=== PATIENT | female | born 1980 | race Caucasian/White ===

== ENCOUNTER 2020-11-29 23:11 | Inpatient (IN) | payer OTHER, SELFPAY ==
[2020-11-29 23:11] VITALS: BP 102/77; PULSE 100; RESP 18; TEMP 36.7; O2SAT 97; BMI 23.1
--- NOTE | 2020-11-29 23:26 | ED.VIS.GI ---
HPI HPI - GI History of Present Illness Chief Complaint: Diarrhea Detail of Chief Complaint: Diarrhea that started 5 days ago Informant: patient and spouse/S.O. Diarrhea/Melena/Hematochezia GI Symptom: Positive for Diarrhea Narrative Narrative: Patient presents to the emergency department with complaint of diarrhea that started 5 days ago. Patient states that she had been on Augmentin for 7 days for a sinus infection when the diarrhea started. She complains of 10-12 episodes of watery stool per day. Patient discontinued the Augmentin when all of this started and she seemed to improve slightly until 2 days ago when the diarrhea became severe again. 2 evenings ago she took 1 Imodium which did seem to help for about 24hours but then the diarrhea came back today. She denies fevers or chills or sweats. Patient denies eating any undercooked or suspicious foods. She denies recent travel. She denies blood in her stool. No family history of Crohn's or ulcerative colitis. She describes intermittent severe abdominal cramping. Patient denies sick contacts. Prior similar symptoms: No PFSH PFSH Home Medications multivitamin [Multi-Daily] 1 tab PO DAILY 11/30/20 [History Last Taken Unknown] Allergy/AdvReac Type Severity Reaction Status Date / Time No Known Allergies Allergy Verified 11/29/20 23:13 Social History Smoking Status: Never smoker ROS [facility] ED Constitutional Constitutional ED: Reports systems reviewed and no addt'l complaints, except as documented; Denies body ache(s), change in weight or chills Eyes Eyes: Denies acute decrease in peripheral vision, change in vision, double vision or loss of vision ENT ENT ED: Reports none; Denies ear pain, lip swelling, loss taste/smell, neck pain, otalgia or sore throat Cardiovascular Cardiovascular: Reports none; Denies abdominal pain, chest pain with activity, leg edema, lightheadedness, palpitations, rapid heart rate or syncope Respiratory/Chest Respiratory/Chest: Reports none; Denies change in mental status, dry cough, dyspnea, hemoptysis, shortness of breath at rest or shortness of breath with exertion Gastrointestinal Gastrointestinal: Reports none, abdominal pain and diarrhea; Denies change in stool character, hematemesis, hematochezia, melena, rectal bleeding or vomiting Genitourinary Genitourinary ED: Reports none; Denies abdominal discomfort, anuria, dysuria, genital pain or polyuria Musculoskeletal Musculoskeletal: Reports none; Denies arthralgias, back pain, difficulty walking, extremity pain, muscle weakness or myalgias Integumentary Reports none; Denies abscess or rash Neurologic Neurologic: Reports none; Denies abnormal gait, confusion, focal weakness, frequent falls, headache(s), loss of vision, numbness, paresthesias, radicular pain, vertigo or weakness Psychiatric Psychiatric: Reports systems reviewed and no addt'l complaints, except as documented and none; Denies behavioral changes, confusion, difficulty concentrating, hallucinations, suicidal ideation, tactile hallucinations or visual hallucinations Endocrine Endocrinology: Denies none, cold intolerance, excessive sweating, fatigue or heat intolerance Hematologic/Lymphatic Hematologic/Lymphatic: Reports none; Denies anemia, easy bleeding or easy bruising Allergic/Immunologic Allergic/Immunologic ED: Denies as per HPI, none, lip swelling, mouth swelling, throat swelling, tongue swelling or hives EXAM Physical Exam Const Vital Signs: 11/29/20 23:11 11/30/20 02:15 11/30/20 03:08 Temperature 98.0 F 98.1 F Temperature Source Temporal Temporal Pulse Rate 100 94 88 Respiratory Rate 18 16 16 Blood Pressure 102/77 119/69 124/69 H Blood Pressure Mean 85 85 87 Pulse Ox 97 100 98 Oxygen Delivery Method Room Air Room Air Room Air Positive well nourished and well developed General Appearance ED: well developed and NAD HEENT Reports TM's clear and moist mucous membranes normocephalic and atraumatic; Negative for trauma or tenderness Tympanic Membrane ED: Yes TM's clear Eyes PERRL and EOMs intact bilaterally General Eye ED: Negative for pale conjunctiva or scleral icterus Neck no lymphadenopathy, supple and no JVD General: Negative for tenderness Chest Wall inspection of chest normal and palpation of chest normal Chest: Negative for tenderness Resp normal respiratory effort and clear to auscultation bilaterally Effort and Inspection: Negative for respiratory distress or pain with movement Auscultation: Negative for rhonchi, wheezes or diminished lung sounds Cardio regular rate, regular rhythm, S1 normal heart sound, S2 normal heart sound and no murmurs Peripheral Pulses: pulses 2+ throughout GI normal to inspection, nondistended, normoactive bowel sounds, soft to palpation, non-tender, non-distended and no masses Back/Spine no CVA tenderness and no thoracic nor lumbar tenderness Extremity normal to inspection General Extremety ED: Negative for edema General Extremity: Negative for edema Neuro oriented x3, CN's II-XII intact bilaterally, no sensory deficits noted and gait normal Sensorium / Orientation: awake, alert, oriented to person, oriented to place and oriented to time Motor Exam: strength 5/5 throughout and strength abnormal Psych mental status grossly normal Skin no rashes or lesions noted and no wounds MDM MDM MDM Narrative Medical decision making narrative: Patient noted to have C. difficile. She was given potassium chloride p.o. She received Bentyl IM and did feel improved. She continued complaint of nausea and was medicated with Zofran 4 mg IV. Patient received normal saline IV fluids. Patient started on vancomycin p.o. Lab Data Attestation: I reviewed the patient's lab results. Labs: Laboratory Results - last 24 hr 11/29/20 11/29/20 11/29/20 23:42 23:42 23:42 WBC 18.5 H RBC 4.80 Hgb 14.4 Hct 42.8 MCV 89.2 MCH 30.0 MCHC 33.6 RDW Std Deviation 39.3 RDW Coeff of Juan 12.0 Plt Count 319 MPV 8.9 Immature Gran % (Auto) 0.300 Neut % (Auto) 85.3 H Lymph % (Auto) 6.8 L Ogle % (Auto) 7.3 Eos % (Auto) 0.1 Baso % (Auto) 0.2 Absolute Neuts (auto) 15.8 H Absolute Lymphs (auto) 1.26 Nucleated RBC % 0 Sodium 137 Potassium 3.1 L Chloride 104 Carbon Dioxide 26.0 Anion Gap 7 BUN 6 L Creatinine 0.95 Estim Creat Clear Calc 67.30 Est GFR (MDRD) Af Amer 83 Est GFR (MDRD) Non-Af 69 BUN/Creatinine Ratio 6.3 L Glucose 117 H Lactic Acid 1.1 Calcium 8.5 Discharge Plan Triage Chief Complaint: Diarrhea ED Provider: Jonh Gonzalez Dx/Rx/DC Orders Clinical Impression: C. difficile colitis, Abdominal pain, Acute hypokalemia, Sepsis Prescriptions: No Action multivitamin [Multi-Daily] Tablet 1 tab PO DAILY RF: 0 Primary Care Provider: Carlos Mendiola Referrals: Carlos Mendiola MD [Primary Care Provider] - Disposition Disposition: Acute Care [facility]
[2020-11-29] MEDS: Dicyclomine 20 MG/2 ML Vial IM (23:34)
[2020-11-29] MEDS: 0.9% Normal Saline 1,000 ML 1000 ML IV (23:40)
[2020-11-29 23:49] LABS: Absolute Lymphocyte Count 1.26 X10^3/uL (0.83-4.51); Absolute Neutrophil Count 15.8 X10^3/uL (2.0-7.7); Basophil# 0.04 X10^3/uL; Basophil% 0.2 % (0-1); Eosinophil# 0.02 X10^3/uL; Eosinophils% 0.1 % (0-5); Hematocrit 42.8 % (37-47); Hemoglobin 14.4 g/dL (12.0-15.0); Lymphocyte # 1.26 X10^3/ul (0.83-4.51); Lymphocyte % 6.8 % (19-41); Mean Corp Hgb Conc 33.6 g/dL (32-36); Mean Corpuscular Volume 89.2 fL (81-99); Mean Platelet Vol. 8.9 fl (6.2-12.0); Monocyte# 1.36 X10^3/uL; Monocyte% 7.3 % (0-10); NRBC Flagged by Analyzer 0 % (0-5); Neutrophil # 15.79 X10^3/uL (2.7-7.7); Neutrophil % 85.3 % (47-70); Platelet Count 319 K/mm3 (150-450); RBC Distribution Width SD 39.3 fl (35.1-43.9); White Blood Count 18.5 K/mm3 (4.4-11.0)
[2020-11-30] VITALS (7 sets, daily range): BP systolic 108–124; BP diastolic 63–79; PULSE 78–97; RESP 16; TEMP 36.3–37.2; O2SAT 96–100; BMI 24.3
[2020-11-30 00:03] LABS: Anion Gap 7 (5-15); BUN 6 mg/dL (7-18); BUN/Creat Ratio 6.3 RATIO (10-20); Calcium,Total 8.5 mg/dL (8.5-10.1); Chloride 104 mmol/L (98-107); Creatinine, Serum 0.95 mg/dL (0.55-1.02); EST Glomerular Filtration Rate 69 mL/min (>60); Est Glom Filt Rate - Afr Amer 83 mL/min (>60); Glucose 117 mg/dL (74-106); Potassium 3.1 mmol/L (3.5-5.1); Sodium Level 137 mmol/L (136-145)
[2020-11-30 00:12] LABS: Lactic Acid 1.1 mmol/L (0.4-1.9)
[2020-11-30] MEDS: Ondansetron 4 MG/2 ML Vial IV ×3 (02:08→18:10)
--- NOTE | 2020-11-30 02:27 | ED.RN ---
pt c/o nausea and abdominal cramping, pt will try to eat saltines then take the potassium as ordered.
[2020-11-30] MEDS: Potassium Chloride Oral Tablet 20 MEQ 40 MEQ PO (02:46)
[2020-11-30] MEDS: Vancomycin 125 MG/5 ML Susp PO.SYRINGE PO ×5 (02:52→23:56)
--- NOTE | 2020-11-30 03:24 | HP.PCM.HOS_ITS ---
[facility] - General General Date of Admission: 11/30/20 Date of Service: 11/30/20 Chief Complaint: Diarrhea HPI Narrative KEE ELIZABETH, is a 39 F with a significant history of recurrent sinusitis who presented to the emergency department with multiple episodes of loose stools that started about 5 days prior to presentation. Associated with her symptoms is nausea and vomiting. She can only tolerate toast. She reports low-grade fever of between 99-100 Fahrenheit. Further he reports anorexia. He reported that because of sinusitis she was put on a 10-day course of Augmentin. She stopped taking the antibiotics on the seventh day. She began taking Imodium because of her loose stools. Upon calling her PCP she was advised to stop taking Imodium as it may be C. difficile. [facility] Medical History (Updated 11/30/20 @ 03:[address] Darren Fuentes MD) Sinusitis Home Medications multivitamin [Multi-Daily] 1 tab PO DAILY 11/30/20 [History Last Taken Unknown] Allergy/AdvReac Type Severity Reaction Status Date / Time No Known Allergies Allergy Verified 11/29/20 23:13 Family History (Updated 11/30/20 @ 03:[address] Darren Fuentes MD) Other Cancer Colon cancer Hypertension Surgical History (Updated 11/30/20 @ 03:[address] Darren Fuentes MD) [place] teeth extracted Social History Smoking Status: Never smoker ROS ROS Narrative Constitutional: Reports fever and anorexia. Denies chills Eyes: Denies blurry vision, change in eye color, change in vision, discharge from eye(s), double vision, erythema, eye pain, loss of vision or other HEENT: Denies abnormal hearing, dysphagia, ear pain, epistaxis, headache(s), or other Cardiovascular: Denies chest pain. Denies dyspnea on exertion, orthopnea and paroxysmal nocturnal dyspnea Respiratory/Chest: Denies cough, excessive phlegm production, shortness of breath with exertion and wheezing Gastrointestinal: Reports abdominal cramps; diarrhea nausea; dry heaving and vomiting. Genitourinary: Denies burning urination, difficulty urinating, dysuria, hematuria, nocturia, urinary frequency, urinary hesitancy, urinary incontinence, urinary urgency or other Musculoskeletal: Denies arthralgias, back pain, joint pain, joint stiffness, joint swelling, myalgias, neck pain or other Neurologic: Denies abnormal gait, abnormal speech, confusion, disequilibrium, dizziness, focal weakness, headache(s), numbness, paresthesias, seizure-like activity, seizures, syncope, tingling, tremor(s) or other Psychiatric: Denies anxiety, depression, homicidal ideation, suicidal ideation or other Endocrinology: Denies change in body appearance, cold intolerance, excessive sweating, heat intolerance, polydipsia, polyuria or other Hematologic/Lymphatic: Denies anemia, easy bleeding, easy bruising, lymphadenopathy or other Integumentary: Denies ulcer on buttocks. Allergic/Immunologic: Denies hives, eczema, asthma or other Vital Signs Vital Signs Vital Signs: 11/29/20 23:11 11/30/20 02:15 11/30/20 03:08 Temperature 98.0 F 98.1 F Temperature Source Temporal Temporal Pulse Rate 100 94 88 Respiratory Rate 18 16 16 Blood Pressure 102/77 119/69 124/69 H Blood Pressure Mean 85 85 87 Pulse Ox 97 100 98 Oxygen Delivery Method Room Air Room Air Room Air Weight Weight: 61.235 kg Body Mass Index (BMI) 23.1 Physical Exam Narrative Physical exam: General: Well-nourished, well-developed, no acute distress Head: Normocephalic, atraumatic, no tenderness Eyes: PERRLA, EOMI ENT, no trauma, moist mucous membranes, no rhinorrhea Neck: Nontender, full range of motion, no spinal tenderness, deformities, step- off CVS: Regular rate and rhythm Respiratory no acute distress, clear to auscultation bilaterally, chest wall nontender, no wheezing Abdomen: Soft, nontender, nondistended, normal bowel sounds, no masses : Deferred Back: Nontender, no CVA tenderness, no midline spinal tenderness, deformities, step-offs Extremities: Nontender full range of motion, no trauma Skin: Normal color, no trauma, abrasions Neuro: Alert, oriented, cranial nerves II through XII grossly intact. Psychiatry: Normal mood. Normal affect. Not depressed. Not anxious. Results Lab / Micro Data Result Diagrams: 11/29/20 23:42 11/29/20 23:42 Labs: Laboratory Results - last 24 hr 11/29/20 23:42: WBC 18.5 H, RBC 4.80, Hgb 14.4, Hct 42.8, MCV 89.2, MCH 30.0, MCHC 33.6, RDW Std Deviation 39.3, RDW Coeff of Juan 12.0, Plt Count 319, MPV 8.9, Immature Gran % (Auto) 0.300, Neut % (Auto) 85.3 H, Lymph % (Auto) 6.8 L, Gray % (Auto) 7.3, Eos % (Auto) 0.1, Baso % (Auto) 0.2, Absolute Neuts (auto) 15.8 H, Absolute Lymphs (auto) 1.26, Nucleated RBC % 0 11/29/20 23:42: Lactic Acid 1.1 11/29/20 23:42: Sodium 137, Potassium 3.1 L, Chloride 104, Carbon Dioxide 26.0, Anion Gap 7, BUN 6 L, Creatinine 0.95, Estim Creat Clear Calc 67.30, Est GFR (MDRD) Af Amer 83, Est GFR (MDRD) Non-Af 69, BUN/Creatinine Ratio 6.3 L, Glucose 117 H, Calcium 8.5 Micro: Microbiology 11/30/20 00:00 Stool Enteric Bacteriology - Final 11/30/20 00:00 Stool C. difficile GDH Antigen & Toxins - Final Toxigenic C. difficile 11/30/20 00:00 Stool C. difficile DNA Amplification - Final Assessment & Plan Assessment/Plan (1) Sepsis: QUALIFIERS: Sepsis acute organ dysfunction status: without acute organ dysfunction Sepsis type: sepsis due to unspecified organism Qualified Code(s): A41.9 - Sepsis, unspecified organism (2) C. difficile colitis: (3) Acute hypokalemia: PLAN: Sepsis secondary to C. difficile colitis Patient meets SIRS criteria with heart rate of more than 90; and white count of 18.5 and with neutrophilic predominance. Review of microbiology showed toxigenic positive C. difficile Received vancomycin p.o. at the emergency department and continued. Supportive treatment with Metamucil; and normal saline with potassium infusion. Patient reported that she can tolerate toast. Regular diet ordered. Received a Bentyl IM at the bigger department with good response. Bentyl IM ordered. Antiemetics with Zofran IV ordered. Trend CBC and BMP. Acute hypokalemia Patient potassium of 3.1 likely secondary to vomiting and diarrhea. Received 40 mEq potassium. Emergency department. Placed on normal saline with 40 mEq of potassium at 100 mL/h. Check magnesium. DVT prophylaxis: Low risk Encourage to ambulate. Charges/Coding Visit Charges Inpatient E&M: 61723 Init Hosp L3
[2020-11-30 04:30] LABS: Magnesium 1.9 mg/dL (1.6-2.6)
[2020-11-30] MEDS: Potassium Chloride 40 MEQ in 0.9% Normal Saline 1,000 ML 100 MEQ IV ×3 (04:54→23:58)
[2020-11-30] MEDS: 0.9% Saline Lock 10 ML Syringe IV ×5 (04:54→21:14)
[2020-11-30] MEDS: Dicyclomine 20 MG/2 ML Vial IM (05:10)
[2020-11-30 05:41] LABS: Absolute Lymphocyte Count 1.37 X10^3/uL (0.83-4.51); Absolute Neutrophil Count 14.3 X10^3/uL (2.0-7.7); Basophil# 0.03 X10^3/uL; Basophil% 0.2 % (0-1); Eosinophil# 0.01 X10^3/uL; Eosinophils% 0.1 % (0-5); Hematocrit 42.6 % (37-47); Hemoglobin 14.2 g/dL (12.0-15.0); Lymphocyte # 1.37 X10^3/ul (0.83-4.51); Mean Corp Hgb Conc 33.3 g/dL (32-36); Mean Corpuscular Hgb 29.8 pg (27.0-32.0); Mean Corpuscular Volume 89.3 fL (81-99); Monocyte# 1.35 X10^3/uL; Monocyte% 7.9 % (0-10); NRBC Flagged by Analyzer 0 % (0-5); Neutrophil # 14.26 X10^3/uL (2.7-7.7); Neutrophil % 83.3 % (47-70); Platelet Count 297 K/mm3 (150-450); RBC Distribution Width CV 12.1 % (11.6-14.6); RBC Distribution Width SD 39.6 fl (35.1-43.9); Red Blood Count 4.77 M/mm3 (4.2-5.4); White Blood Count 17.1 K/mm3 (4.4-11.0)
[2020-11-30 06:00] LABS: Anion Gap 6 (5-15); BUN 5 mg/dL (7-18); BUN/Creat Ratio 6.1 RATIO (10-20); Calcium,Total 8.1 mg/dL (8.5-10.1); Chloride 107 mmol/L (98-107); Creatinine, Serum 0.82 mg/dL (0.55-1.02); EST Glomerular Filtration Rate 81 mL/min (>60); Est Glom Filt Rate - Afr Amer 98 mL/min (>60); Estimated Creatinine Clearance 77.96 ml/min; Glucose 117 mg/dL (74-106); Potassium 3.5 mmol/L (3.5-5.1); Sodium Level 139 mmol/L (136-145)
--- NOTE | 2020-11-30 06:16 | NURSING ---
Patient refusing 0600 Metamucil at this time because she is nauseous and cannot stomach an entire glass of water. This RN left it hanging out for now in case she feels like she can drink it in a full glass of water soon.
--- NOTE | 2020-11-30 11:05 | CASEMGMT ---
ANDREZ SANTILLAN Assessment: Face to Face with pt for initial transition planning/care coordination assessment. RN CM introduced self and role at [facility], pt voices understanding and consents to assessment. Pt is A/O x4 and answers all questions appropriately at this time. Pt sitting up in bed in no distress. Care providers, pharmacy, and demographics verified/updated. Admitting Dx: sepsis secondary to Cdiff PCP:Maury Specialists: dennys Niño; [facility] for TRANSPORT ASSISTANT Preferred Pharmacy: [facility] Insurance: Commercial- [employer] insurance Prescription Benefit: Pt states she receives a discount card for rx. LW/HPOA: Pt states she does have LW/DPOA and thinks her is her DPOA. She is aware that it is not on file at [facility] and she may bring in to scan into chart. LNOK: Javier Sykes, Living Arrangements: Pt lives with her and 3 children in a two story house with 2 steps to enter without a rail. Pt reports being I in ADL's and denies concerns at home. Transportation: Pt drives self and denies concerns with transportation. DME/HHC/SNF: Pt denies having DME, previous HHC or SNF stay. Pt states no concerns with going home at time of dc. Pt states no further concerns/needs. CM to follow. Advised pt to ask CM if any further question/concerns/needs arise, voices understanding. Pt Goal: Home Plan: Home with family support.
[2020-11-30] MEDS: Dicyclomine 10 MG Capsule 20 MG PO ×3 (13:19→23:55)
--- NOTE | 2020-11-30 20:21 | PCM.HOSP.N ---
Hospitalist Note Patient was seen and examined briefly today, I talked with her and her , she is still having loose stools today. Patient is able to take in liquids and is on IV fluids however. I will reassess the patient tomorrow for possible discharge if she has less frequent bowel movements.
[2020-12-01 02:14] VITALS: BP 109/66; PULSE 67; RESP 16; TEMP 36.6; O2SAT 98
[2020-12-01] MEDS: Dicyclomine 10 MG Capsule 20 MG PO (05:46)
[2020-12-01] MEDS: Vancomycin 125 MG/5 ML Susp PO.SYRINGE PO (05:46)
[2020-12-01 07:09] VITALS: O2SAT 95
[2020-12-01 09:02] VITALS: BP 110/72; PULSE 74; RESP 18; TEMP 36.7; O2SAT 99
--- NOTE | 2020-12-01 12:45 | PCM.DC ---
Discharge Instructions Diet Discharge Diet: No restrictions Activity Discharge Activity: Return to Normal Activity Weight Bearing Status: Full weight bearing Follow Up Care Test Results: Test results from this visit will be discussed in further detail at your follow-up appointment, if applicable. Discharge Plan Admission Admit Date/Time: 11/30/20 03:18 Primary Reason for Your Visit: c.diff infection Attending Provider: Yannick Galeana Primary Care Provider: Carlos Mendiola Discharge Orders/Prescriptions Prescriptions: New Firvanq 25 mg/mL Recon Soln 125 mg PO Q6 Qty: 34 RF: 0 No Action multivitamin [Multi-Daily] Tablet 1 tab PO DAILY RF: 0 Referrals / Follow Up: Carlos Mendiola MD [Primary Care Provider] - Within 2 Weeks Disposition Disposition (needs filled in before D/C Order can be placed): Home, Self Care
[2020-12-01 14:00] VITALS: BP 116/80; PULSE 81; RESP 16; TEMP 37; O2SAT 97
--- NOTE | 2020-12-04 09:45 | PCM.DC.SUM ---
Providers Date of Admission: 11/30/20 Date of Discharge: 12/01/20 Primary Care Physician: Dr. Carlos Mendiola MD Reason For Visit: SEPSIS SECONDARY TO CDIFF Diagnosis Discharge Diagnosis (1) Sepsis: Status: Acute Code(s): A41.9 - Sepsis, unspecified organism Qualifiers: Sepsis type: sepsis due to unspecified organism Sepsis acute organ dysfunction status: without acute organ dysfunction Qualified Code(s): A41.9 - Sepsis, unspecified organism (2) C. difficile colitis: Status: Acute Code(s): A04.72 - Enterocolitis due to Clostridium difficile, not specified as recurrent (3) Acute hypokalemia: Status: Acute Code(s): E87.6 - Hypokalemia Plan: 1. Sepsis secondary to C. difficile colitis #2 C. difficile colitis #3 acute hypokalemia secondary to C. difficile colitis Medications at Discharge Home Medications multivitamin [Multi-Daily] 1 tab PO DAILY 11/30/20 vancomycin [Firvanq] 125 mg PO Q6 #34 cap 12/01/20 Hospital Course Operations None Procedures None Summary of Care Provided Minutes Spent on Discharge: 31 Hospital Course: This 40-year-old white female was seen in the emergency room at [facility] with a chief complaint of abdominal cramping and diarrhea, she had recently been placed on antibiotics for a sinus infection. Work-up in the emergency room showed an elevated white blood cell count and low potassium. Stool was positive for C. difficile toxin, patient was admitted to [place] [id number] for sepsis secondary to C. difficile colitis, she was given potassium supplementation, IV fluids, and oral vancomycin. Patient's symptoms improved during her hospitalization. On 12/01/2020, patient was seen and examined: On examination she appeared in good health and spirits, she does not appear to be in any distress. Vital signs as documented. Skin warm and dry and without overt rashes. Neck without JVD, thyroid appears normal, trachea is midline, neck is supple. Lungs clear, normal air movement was noted. Heart exam notable for regular rhythm, normal sounds and absence of murmurs, rubs or gallops. Abdomen unremarkable and without evidence of organomegaly, masses, or abdominal aortic enlargement, bowel sounds are present in all 4 quadrants, no abdominal tenderness was noted. Extremities nonedematous, no cyanosis was noted, no clubbing was noted. Neuro: Cranial nerves II through XII are grossly intact, no focal motor deficits were noted, sensation to light touch and pinprick is intact, motor exam 5/5 throughout. Psych: Patient is alert and oriented x3, she does not appear anxious or depressed, she does not appear agitated. On 12/01/2020, patient was discharged home in stable condition. Weight / BMI Weight Weight: 64.4 kg Body Mass Index (BMI) 24.3 ABG / Lab / Microbiology Data Result Diagrams: 11/30/20 05:30 11/30/20 05:30 Microbiology: Microbiology 11/30/20 03:20 Blood Culture (Wb) - Anticubital Right Blood Culture - Preliminary No growth in 48 hours. 11/30/20 03:20 Blood Culture (Wb) - Anticubital Left Blood Culture - Preliminary No growth in 48 hours. 11/30/20 02:02 Stool Ova and Parasites - Final 11/30/20 00:00 Stool Enteric Bacteriology - Final 11/30/20 00:00 Stool C. difficile GDH Antigen & Toxins - Final Toxigenic C. difficile 11/30/20 00:00 Stool C. difficile DNA Amplification - Final D/C Instructions Discharge Diet: No restrictions Weight Bearing Status: Full weight bearing Meaningful Use Info Meaningful Use Diagnoses (Choose all that apply): None applicable Discharge Plan Admission Admit Date/Time: 11/30/20 03:18 Primary Reason for Your Visit: c.diff infection Attending Provider: Yannick Galeana Primary Care Provider: Carlos Mendiola Discharge Orders/Prescriptions Prescriptions: New Firvanq 25 mg/mL Recon Soln 125 mg PO Q6 Qty: 34 RF: 0 No Action multivitamin [Multi-Daily] Tablet 1 tab PO DAILY RF: 0 Referrals / Follow Up: Carlos Mendiola MD [Primary Care Provider] - Within 2 Weeks Disposition Disposition (needs filled in before D/C Order can be placed): Home, Self Care Charges/Coding Visit Charges Inpatient E&M: 41066 Disch Hosp
== END 2020-12-01 14:02 | disposition home or self-care (01) | DRG 872 ==
LOC: ED 11-30 03:17 → MS3 11-30 04:06
PROVIDERS: Admitting Provider Hospitalist; Emergency Provider Emergency Medicine; PCP Family Medicine; Visit Provider Internal Medicine
DX: A41.4 Sepsis due to anaerobes (principal); A04.72 Enterocolitis due to Clostridium difficile, not specified as recurrent; E87.6 Hypokalemia
CPT/HCPCS: 36415; 80048; 83605; 83735; 85025; 87040; 87177; 87209; 87493; 87506; 97802; 99285; J7030; A4216; J2405

== ENCOUNTER → 2022-05-11 | Outpatient (CLI) | payer OTHER, SELFPAY ==
[2022-05-11 10:36] LABS: Anion Gap 3 (5-15); BUN 12 mg/dL (7-18); BUN/Creat Ratio 14.7 RATIO (10-20); Calcium,Total 8.7 mg/dL (8.5-10.1); Chloride 107 mmol/L (98-107); Cholesterol 152 mg/dL (200); Creatinine, Serum 0.82 mg/dL (0.55-1.02); EST Glomerular Filtration Rate 81 mL/min (>60); Est Glom Filt Rate - Afr Amer 98 mL/min (>60); Glucose 92 mg/dL (74-106); High Density Lipoprotein 77 mg/dL; Potassium 3.9 mmol/L (3.5-5.1); Sodium Level 140 mmol/L (136-145); Thyroid Stim Hormone (TSH) 1.03 uIU/mL (0.358-3.74); Triglycerides 51 mg/dL; Very Low Density Lipoprotein 10 mg/dL (5-40)
== END | disposition home or self-care (01) ==
LOC: MFPLAB 08:49
PROVIDERS: PCP Family Medicine; Visit Provider Family Medicine
DX: Z13.1 Encounter for screening for diabetes mellitus (principal); Z13.220 Encounter for screening for lipoid disorders; Z13.29 Encounter for screening for other suspected endocrine disorder
CPT/HCPCS: 36415; 80048; 80061; 84443

== ENCOUNTER → 2022-05-26 | Outpatient (CLI) | payer OTHER, SELFPAY ==
--- NOTE | 2022-05-26 10:44 | BI_ITS ---
MAMMOGRAPHY - BILATERAL SCREENING REASON FOR EXAM: Female, 41 years old. Routine annual screening examination. PERTINENT HISTORY: Non-contributory. History of prior right breast biopsies. TECHNIQUE: Digital bilateral breast alisha (3D mammographic acquisition) in the CC and MLO projections. 2-D mediolateral oblique (MLO) and craniocaudad (CC) views of both breasts were obtained. CAD: Full Field Digital Mammography with Computer Added Detection was performed. COMPARISON: Comparison is made with prior outside examination dated 01/06/2020. FINDINGS: Breast Composition: The breasts are extremely dense, which lowers the sensitivity of mammography. There are no dominant masses or suspicious calcifications. A tissue clip marker is seen in the superior slightly lateral aspect of the right breast. No other significant abnormalities are identified. There has been no significant change since the prior study. BI/SCRN MAMM (CAD)W/ALISHA BILAT IMPRESSION: Stable bilateral screening mammogram. Yearly follow-up mammogram recommended. (A) ASSESSMENT CATEGORY: BIRADS Category 2: Benign. A letter regarding these results will be sent to the patient by the facility within 30 days. Approximately 10% of breast cancers are not detected by mammography. A normal mammogram should not delay biopsy of a clinically suspicious abnormality. [id number] Electronically Signed: Jared Mann MD at 13:32 EST ,
== END | disposition home or self-care (01) ==
LOC: OPBI 10:41
PROVIDERS: PCP Family Medicine; Visit Provider Family Medicine
DX: Z12.31 Encounter for screening mammogram for malignant neoplasm of breast (principal)
CPT/HCPCS: 77063; 77067

== ENCOUNTER → 2022-06-16 | Outpatient (CLI) | payer OTHER, SELFPAY ==
--- NOTE | 2022-06-16 11:50 | US_ITS ---
STUDY: ULTRASOUND BREAST - RIGHT REASON FOR EXAM: Female, 41 years old. Right axillary lump. TECHNIQUE: Axial and longitudinal images of the RIGHT breast were performed with a high resolution ultrasound transducer. # OF IMAGES: 41 COMPARISON: Comparison is made with prior mammogram dated 05/26/2022. FINDINGS: RIGHT Breast: The right axillary region was examined with ultrasound. There is evidence of accessory breast tissue. No solid or cystic mass lesion is seen. US/Breast Limited Unilateral IMPRESSION: No sonographic abnormality is seen. ASSESSMENT CATEGORY: BIRADS Category 2: Benign. A letter regarding these results will be sent to the patient by the facility within 30 days. Electronically Signed: Jared Mann MD at 12:31 EST ,
== END | disposition home or self-care (01) ==
PROVIDERS: PCP Family Medicine; Visit Provider Family Medicine
DX: R22.31 Localized swelling, mass and lump, right upper limb (principal)
CPT/HCPCS: 76642

== ENCOUNTER → 2023-06-16 | Outpatient (CLI) | payer OTHER, SELFPAY ==
--- NOTE | 2023-06-16 08:56 | BI_ITS ---
MAMMOGRAPHY - BILATERAL SCREENING REASON FOR EXAM: Female, 42 years old. Routine annual screening examination. PERTINENT HISTORY: Non-contributory. Prior right breast biopsy. TECHNIQUE: Digital bilateral breast alisha (3D mammographic acquisition) in the CC and MLO projections. 2-D mediolateral oblique (MLO) and craniocaudad (CC) views of both breasts were obtained. CAD: Full Field Digital Mammography with Computer Added Detection was performed. COMPARISON: Comparison is made with prior study dated May 26, 2022. FINDINGS: Breast Composition: The breasts are extremely dense, which lowers the sensitivity of mammography. There are no dominant masses or suspicious calcifications. A tissue clip marker is seen in the superior slightly lateral aspect of the right breast. No other significant abnormalities are identified. There has been no significant change since the prior study. BI/SCRN MAMM (CAD)W/ALISHA BILAT IMPRESSION: Stable bilateral screening mammogram. Yearly follow-up mammogram recommended. (A) ASSESSMENT CATEGORY: BIRADS Category 2: Benign. A letter regarding these results will be sent to the patient by the facility within 30 days. Approximately 10% of breast cancers are not detected by mammography. A normal mammogram should not delay biopsy of a clinically suspicious abnormality. [id number] Electronically Signed: Jared Mann MD at 9:27 EST ,
--- OUTSIDE RECORDS SUMMARY | 2023-06-16 08:59 | XMS RPT_ITS | CCD ---
Author Name Unknown Address [address] [place] [id number] Organization [facility] Results Test Name Value Interpretation Reference Range Facil ity Progress note 02-24-2021 Note Date & Type Note Facility 02-24-2021 Note HNO ID: [id number] Author: Danielle Benton Service: ? Author Type: Animal Damage Control Agent Type: Progress Notes Filed: 02/24/2021 3:26 PM Note Text: Radiology Service Progress Note PATIENT NAME: Arabella Sykes DATE OF SERVICE: February 24, 2021 TIME: 3:26 PM PATIENT IDENTITY VERIFICATION COMPLETED USING TWO (2) IDENTIFIERS: Name and Date of confirmed by patient verbally. FALL SCREENING: Has the patient had 2 falls in the last year or 1 fall with injury or currently using an Ambulatory Assistive Device (Walker, Cane, Wheelchair, Crutches, etc.)? No PATIENT GENDER DATA: Female. status: : No status: NO. PATIENT RELEVANT IMPLANT DATA REVIEWED: Not Applicable RADIOLOGY DEPARTMENT: Mammography PERIPHERAL IV DATA: Not applicable SIGNED BY: Danielle Benton February 24, 2021 3:26 PM [facility] Summary Purpose Family History No Family History Records FoundNo Family History Records FoundNo Family History Records Found Advance Directives No Advanced Directives Records FoundNo Advanced Directives Records FoundNo Advanced Directives Records Found Additional Source Comments INFORMATION SOURCE (unrecogn ized section and content) DATE CREATED AUTHOR AUTHOR'S ORGANIZ ATION 06/03/2020 [facility] [employer] DATE CREATED AUTHOR AUTHOR'S ORGANIZ ATION 06/14/2021 [facility] FOR RECORDS PERTAINING TO PATIENTS WHO ARE OR HAVE BEEN ENROLLED IN A CHEMICAL DEPENDENCY/SUBSTANCEABUSE PROGRAM, SOME INFORMATION MAY BE OMITTED. This clinical summary was aggregated from multiple sources. Caution should be exercised in using it in the provision of clinical care. This summary normalizes information from multiple sources, and as a consequence, information in this document may materially change the coding, format and clinical context of patient data. In addition, data may be omitted in some cases. CLINICAL DECISIONS SHOULD BE BASED ON THE PRIMARY CLINICAL RECORDS. [facility] [employer] [facility]. provides no warranty or guarantee of the accuracy or completeness of information in this document.
== END | disposition home or self-care (01) ==
PROVIDERS: PCP Family Medicine; Referring Provider Family Medicine; Visit Provider Family Medicine
DX: Z12.31 Encounter for screening mammogram for malignant neoplasm of breast (principal)
CPT/HCPCS: 77063; 77067

== ENCOUNTER → 2024-06-25 | Outpatient (CLI) | payer OTHER, SELFPAY ==
--- NOTE | 2024-06-25 13:03 | RAD_ITS ---
PROCEDURE: LEFT SHOULDER MIN 2 VIEWS REASON FOR EXAM: Pain. TECHNIQUE: Four views of the left shoulder are obtained. COMPARISON: None. FINDINGS: No acute fracture or dislocation is present. No osseous erosive changes or periosteal reaction is present. Glenohumeral joint and acromioclavicular joint are intact. There is a tiny punctate ossific density measuring 2 mm superior to the glenoid process. Visualized soft tissues are unremarkable. RAD/Shoulder min 2 Views IMPRESSION: 1. No acute osseous abnormality. 2. Tiny punctate ossific density measuring 2 mm superior to the glenoid process which may relate to a loose body. Reading Location: [facility]
== END | disposition home or self-care (01) ==
LOC: MTRAD 13:02
PROVIDERS: PCP Family Medicine; Referring Provider Family Medicine; Visit Provider Family Medicine
DX: M75.52 Bursitis of left shoulder (principal)
CPT/HCPCS: 73030

== ENCOUNTER 2024-06-28 11:57 | Outpatient (RCR) | payer OTHER, SELFPAY ==
--- NOTE | 2024-06-28 13:03 | HP.PTEVAL_ITS ---
Patient's Visit Information Visit Information Visit Information: KEE ELIZABETH is a 43 year old F referred to Physical Therapy by Dr. Migel Mendiola MD with a diagnosis of LEFT SHOULDER BICEPS TENDONITIS. Date of Evaluation: 06/28/24 Physical Therapist: Emmanuel Douglass, PT, Cert MDT, OCS Visit Plan Frequency: 1 VISIST Plan: PT EVALUATION ONLY FOR HEP PER PATIENT Subjective Subjective: This 43 y/o female presents to physical therapy with left shoulder pain. Patient ahs shoulder pain since November 2023 ,playing volleyball had sharp pain sponstanusly hade pain. Patient doesn't have sharp pain but just currently has constant pain with everyday certain motion. Aggravating reaching OH ,backwards and behind back adn lifting heavy OH. Alleviating movement ex's . Patient has started medication steroid prednisone. Patient had x-rays . Patient denies paresthesia except at night. Patient condition affects QOL and function. Goals learn HEP. SOCIAL: VOCATION : Own business Pain Left Shoulder: Pain Intensity (Out of 10): 2 Pain Intensity Range: 10 Objective Objective: POSTURE: mild forward posture ,rounded shoulders PALAPTION: unremarkable NEURO: denies paresthesia/tingling AROM: shoulder flexion 130 degrees ,abduction 130 degrees ,ER 75 degrees ,IR L1 PROM: shoulder flexion 140 degrees ,abduction 140 degrees MMT: RTC 4/5 ,supraspinatus 4-/5 ,deltoid 4-/5 pain CAPSULAR RESTRICTION: mod tight G-H Special Tests L Shoulder Lift Off Test - Subscapular Tear: Negative L Shoulder Drop Sign - IS Test: Negative L Shoulder Belly Press - SupScap: Negative L Shoulder Neer - Impingement: Positive L Shoulder Betancourt Yahir - Impingement: Positive L Shoulder O'Briens - SLAP/A-C: Negative L Shoulder Shrug Sign - OA/Adhesive Capsulitis: Positive Goals Goal 1:: Patient to be I with HEP for shoulder stretching Goal Time Frame: 1 visits Rehabilitation Potential Physical Therapy Diagnosis: This patient has left shoulder adhesive capsulitis with decrease ROM ,weakness impairs ADLS and housework tasks with OH activities thus wants HEP Rehabilitation Potential: Good Anticipated Interventions Patient/Client Instruction: Educate patient on: Condition and Plan of Care For the Purpose of:: To decrease pain, To increase ROM, To improve muscle performance and motor function, To increase tolerance to activity/condition/position, To improve ability of physical actions for home/co mmunity/work/leisure, To improve health of tissue, To decrease soft tissue restriction, To increase flexibility/ROM and Other Other: HEP Therapeutic Exercise to Include: Strength training, Flexibilty training, Passive ROM and Active ROM For the Purpose of:: To decrease pain, To increase ROM, To improve muscle performance and motor function, To improve ability of physical actions for home/community/work/leisure, To improve health of tissue and To decrease soft tissue restriction Text: Thank you for the opportunity to evaluate your patient. For Medicare and Medicare HMO plans, please review the plan of care and approve it. It will need to be FAXED BACK to us at [phone] for Medicare purposes. For Medicare only, by signing this I certify the plan of care. Please let me know if there are questions or concerns regarding this plan of care. Physician Signature: Date:
--- NOTE | 2024-09-11 09:10 | HP.PTDCNRP_ITS ---
Patient Information Patient Information: KEE ELIZABETH was seen in my office for initial evaluation on 06/28/24. The following Plan of Care was established for this patient: POC Established Initial Frequency: 1 VISIST Anticipated Interventions Patient/Client Instruction: Educate patient on: Condition and Plan of Care For the Purpose of:: To decrease pain, To increase ROM, To improve muscle perf ormance and motor function, To increase tolerance to activity/condition/position, To improve ability of physical actions for home/community/work/leisure, To improve health of tissue, To decrease soft tissue restriction, To increase flexibility/ROM and Other Other: HEP Therapeutic Exercise to Include: Strength training, Flexibilty training, Passive ROM and Active ROM For the Purpose of:: To decrease pain, To increase ROM, To improve muscle performance and motor function, To improve ability of physical actions for home/community/work/leisure, To improve health of tissue and To decrease soft tissue restriction Last Seen Last Seen: This patient was last seen in our office . Pertinent comments regarding their Physical therapy will appear below: Patient is d/c with PT eval only with HEP At this point I will be discontinuing this patient from physical therapy. I would be happy to see this patient again in the future if found appropriate by the physician. Thank you! Emmanuel Douglass, PT, Cert MDT, OCS
== END 2024-06-28 19:00 | disposition home or self-care (01) ==
LOC: PT 11:57
PROVIDERS: PCP Family Medicine; Referring Provider Family Medicine; Visit Provider Family Medicine
DX: M75.22 Bicipital tendinitis, left shoulder (principal); M75.52 Bursitis of left shoulder
CPT/HCPCS: 97110; 97162

== ENCOUNTER → 2024-09-19 | Outpatient (CLI) | payer OTHER, SELFPAY ==
--- NOTE | 2024-09-19 08:06 | BI_ITS ---
EXAM: SCRN MAMM (CAD)W/ALISHA BILAT DATE: 09/19/2024 CLINICAL HISTORY: F, Age 43 y/o , SCREENING History of prior right breast biopsy. BREAST CANCER RISK ASSESSMENT: Not assessed. TECHNIQUE: Bilateral screening digital breast tomosynthesis with 2D and 3D images. Computer aided detection. COMPARISON: Prior exam(s) dated June 16, 2023.. FINDINGS: TISSUE DENSITY: The breast tissue is extremely dense which lowers the sensitivity of mammography. Bilateral Breast Mammographic Findings: No significant masses, calcifications or other abnormalities are identified. Once again, a tissue clip marker from prior biopsy is seen in the upper slightly lateral aspect of the right breast. No suspicious masses, areas of developing architectural distortion, or suspicious calcifications. There has been no significant interval change. BI/SCRN MAMM (CAD)W/ALISHA BILAT IMPRESSION: OVERALL FINAL ASSESSMENT: BIRADS 2 BENIGN FINDING RECOMMENDATION: Routine annual follow-up in 1 Year A letter with findings and recommendations will be mailed to the patient. Reading Location: [id number]
== END | disposition home or self-care (01) ==
PROVIDERS: PCP Family Medicine; Referring Provider Family Medicine; Visit Provider Family Medicine
DX: Z12.31 Encounter for screening mammogram for malignant neoplasm of breast (principal)
CPT/HCPCS: 77063; 77067